=== PATIENT | female | born 1985 | race Caucasian/White ===

== ENCOUNTER 2019-10-13 22:53 | Emergency (ER) | payer OTHER ==
[~2019-10-13] VITALS: Ht 152.4 cm; Wt 68.0 kg
[~2019-10-13 22:53] MED LIST: CIPRO500 MG
[2019-10-14] MEDS ORDERED: CEFADROXIL500 MG (00:06)
[2019-10-14] MEDS ORDERED: PANADOL EXTRA500 MG (00:06)
[2019-10-14] MEDS ORDERED: KETO10TA2 PO (01:34)
[2019-10-14] MEDS ORDERED: KEFLEX500 MG PO (01:34)
[2019-10-14] MEDS ORDERED: MUPIROCIN22 GM TOP (01:34)
== END 2019-10-14 01:26 ==
LOC: ER 22:53 → EMR PED 23:39 → ER 23:39
DX: L02.435 Carbuncle of right lower limb (principal)

== ENCOUNTER 2020-07-08 20:10 | Emergency (ER) | payer OTHER ==
[~2020-07-08] VITALS: Ht 152.4 cm; Wt 66.7 kg
[~2020-07-08 20:10] MED LIST changes: +CEFADROXIL500 MG; +KEFLEX500 MG PO; +KETO10TA2 PO; +MUPIROCIN22 GM TOP; +PANADOL EXTRA500 MG
[2020-07-08] MEDS ORDERED: MIGRAINE RELIEF (20:53)
[2020-07-08] MEDS ORDERED: AZITHROMYCIN 500 MG (20:53)
== END 2020-07-08 22:00 | disposition home or self-care (01) ==
LOC: ER 20:10
DX: G44.40 Drug-induced headache, not elsewhere classified, not intractable (principal); T36.3X5A Adverse effect of macrolides, initial encounter; Y92.89 Other specified places as the place of occurrence of the external cause

== ENCOUNTER 2021-08-11 22:54 | Emergency (ER) | payer OTHER ==
[~2021-08-11] VITALS: Ht 152.4 cm; Wt 70.8 kg
[~2021-08-11 22:54] MED LIST changes: +AZITHROMYCIN 500 MG; +MIGRAINE RELIEF
[2021-08-12] MEDS ORDERED: KETO10TA2 PO (02:41)
[2021-08-12] MEDS ORDERED: BENADRYL ALLERG25 MG PO (02:41)
== END 2021-08-12 04:42 | disposition home or self-care (01) ==
LOC: ER 22:54
DX: G43.909 Migraine, unspecified, not intractable, without status migrainosus (principal); Z03.818 Encounter for observation for suspected exposure to other biological agents ruled out

== ENCOUNTER 2022-08-05 11:43 | Emergency (ER) | payer OTHER ==
[~2022-08-05] VITALS: Ht 152.4 cm; Wt 69.9 kg
[~2022-08-05 11:43] MED LIST changes: +BENADRYL ALLERG25 MG PO
== END 2022-08-05 16:00 | disposition home or self-care (01) ==
LOC: ER 11:43
DX: M54.50 Low back pain, unspecified (principal)

== ENCOUNTER 2023-07-04 05:05 | Day surgery (SDC) | payer OTHER ==
[2023-07-04] MEDS ORDERED: NAPR500T14 PO (11:17)
[2023-07-04] MEDS ORDERED: Tylenol #3 PO (11:17)
== END 2023-07-04 13:35 | disposition home or self-care (01) ==
LOC: CIR.AMB 05:05
PROVIDERS: ATTEND Obstetrics & Gynecology
DX: Z30.2 Encounter for sterilization (principal); Z64.1 Problems related to multiparity; I10 Essential (primary) hypertension; Z20.822 Contact with and (suspected) exposure to COVID-19